=== PATIENT | male | born 1945 | race Caucasian/White ===

== ENCOUNTER 2017-07-21 09:05 | Observation (INO) | payer MEDICARE, OTHER ==
[~2017-07-21] VITALS: Ht 167.6 cm; Wt 101.8 kg
[2017-07-21 09:23] LABS: HEMATOCRIT 40.3 % (39.0-50.0); HEMOGLOBIN 13.6 g/dl (14.0-18.0); IMMATURE GRANULOCYTES 0.2 % (0.0-1.0); MEAN CELL VOLUME 85.7 fL CALC (80.0-100.0); MEAN CORPUSCULAR HGB 28.9 pG CALC (26.0-32.0); MEAN CORPUSCULAR HGB CONC 33.7 g/L CALC (32.0-36.0); NEUT# 5.13 thou/uL (1.82-7.42); RED BLOOD COUNT 4.7 mill/uL (4.70-6.10); RED CELL DISTRI WIDTH 13.8 % (11.5-15.5)
[2017-07-21] MEDS ORDERED: PROVENTIL0.083 % IN (09:40)
[2017-07-21 09:41] LABS: ALBUMIN 4.1 g/dL (3.2-5.0); ALKALINE PHOSPHATASE 67 u/l (38-126); ANION GAP 20 (6-22 (CALC)); BILIRUBIN, TOTAL 0.6 mg/dL (0.0-1.4); BUN 17 mg/dL (8-23); BUN/CREATININE RATIO 17 (12-20 (CALC)); CARBON DIOXIDE 27 mmol/l (22-30); CHLORIDE 98 mmol/l (95-108); GFR > 60 ML/MIN (>=60 (CALC)); GFR FOR AFR.AMER. > 60 ML/MIN (>=60 (CALC)); POTASSIUM 4.5 mmol/l (3.5-5.1); SGPT/ALT 30 u/l (11-66); SODIUM 141 mmol/l (137-146)
[2017-07-21] MEDS ORDERED: COZAAR100 MG PO (09:41)
[2017-07-21] MEDS ORDERED: CLOPIDOGREL75 MG PO (09:41)
[2017-07-21] MEDS ORDERED: GLYBURIDE5 M1 PO (09:41)
[2017-07-21 09:42] LABS: SGOT/AST 41 u/l (19-48)
[2017-07-21] MEDS ORDERED: METFORMIN1000 MG PO (09:43)
[2017-07-21] MEDS ORDERED: NITROSTAT0.4 MG SL (09:43)
[2017-07-21] MEDS ORDERED: OMEPRAZOLE10 MG PO (09:45)
[2017-07-21] MEDS ORDERED: PROTONIX40 M2 PO (09:45)
[2017-07-21] MEDS ORDERED: TRAMADOL HYDROC50 MG PO (09:46)
[2017-07-21] MEDS ORDERED: PRAVASTATIN SOD40 MG PO (09:46)
[2017-07-21 09:52] LABS: MYOGLOBIN 87 ng/mL (0 - 121)
[2017-07-21 13:00] VITALS: BP 138/51
[2017-07-21 16:00] VITALS: BP 143/69
[2017-07-21 19:00] VITALS: BP 177/82
[2017-07-21 20:03] VITALS: BP 159/71
[2017-07-22] VITALS: BP 152/69
[2017-07-22 04:00] VITALS: BP 142/70
[2017-07-22 06:07] LABS: CHOLESTEROL HDL RATIO 4.7 (<4.4 (CALC))
[2017-07-22 07:22] VITALS: BP 138/76
[2017-07-22 12:00] VITALS: BP 144/76
== END 2017-07-22 13:14 | disposition home or self-care (01) ==
LOC: ED 09:05 → ED-I 09:50 → ED 11:28 → MS2 11:29
PROVIDERS: Emergency Medicine; ADMIT Internal Medicine; ATTEND Internal Medicine
DX: R07.9 Chest pain, unspecified (principal); I25.10 Atherosclerotic heart disease of native coronary artery without angina pectoris; I11.9 Hypertensive heart disease without heart failure; E11.9 Type 2 diabetes mellitus without complications; E78.5 Hyperlipidemia, unspecified; I25.2 Old myocardial infarction; I44.7 Left bundle-branch block, unspecified; Z86.74 Personal history of sudden cardiac arrest; Z95.5 Presence of coronary angioplasty implant and graft

== ENCOUNTER 2018-04-11 17:28 | Emergency (ER) | payer MEDICARE ==
[~2018-04-11] VITALS: Ht 167.6 cm; Wt 109.0 kg
[~2018-04-11 17:28] MED LIST: CLOPIDOGREL75 MG PO; COZAAR100 MG PO; GLYBURIDE5 M1 PO; METFORMIN1000 MG PO; NITROSTAT0.4 MG SL; OMEPRAZOLE10 MG PO; PRAVASTATIN SOD40 MG PO; PROTONIX40 M2 PO; PROVENTIL0.083 % IN; TRAMADOL HYDROC50 MG PO
[2018-04-11 18:34] LABS: HEMATOCRIT 35.3 % (39.0-50.0); HEMOGLOBIN 11.8 g/dl (14.0-18.0); IMMATURE GRANULOCYTES 0.3 % (0.0-5.0); MEAN CELL VOLUME 89.6 fL CALC (80.0-100.0); MEAN CORPUSCULAR HGB 29.9 pG CALC (26.0-32.0); MEAN CORPUSCULAR HGB CONC 33.4 g/L CALC (32.0-36.0); NEUT# 4.25 thou/uL (1.82-7.42); RED BLOOD COUNT 3.94 mill/uL (4.70-6.10); RED CELL DISTRI WIDTH 13.6 % (11.5-15.5); URINE BLOOD DIPSTICK TRACE-INTACT (NEGATIVE); URINE COLOR YELLOW; URINE GLUCOSE - DIPSTICK NEGATIVE (NEGATIVE); URINE KETONE TRACE mg/dL (NEGATIVE); URINE LEUK ESTERASE NEGATIVE (NEGATIVE); URINE NITRITE - DIPSTICK NEGATIVE (Negative); URINE PH 5.5 (4.5-8.0); URINE PROTEIN - DIPSTICK 30 mg/dL (NEG-TRACE); URINE SPECIFIC GRAVITY >=1.030; URINE UROBILINOGEN - DIPSTICK 0.2 E.U./dL (0.2)
[2018-04-11 18:36] LABS: URINE BILIRUBIN - DIPSTICK NEGATIVE (NEGATIVE)
[2018-04-11 18:47] LABS: ALBUMIN 3.7 g/dL (3.2-5.0); BILIRUBIN, TOTAL 0.5 mg/dL (0.0-1.4); CREATININE 1.5 mg/dL (0.7-1.3); POTASSIUM 4.3 mmol/l (3.5-5.1); URINE RBC 0-2 RBC/hpf (0-5); URINE WBC 0-2 WBC/hpf (0-5)
[2018-04-11 18:48] LABS: TOTAL PROTEIN 6.2 g/dL (6.3-8.2)
[2018-04-11 21:51] VITALS: BP 187/80
== END 2018-04-11 22:04 | disposition short-term general hospital (02) ==
LOC: ED 17:28
DX: I44.2 Atrioventricular block, complete (principal); E11.9 Type 2 diabetes mellitus without complications; I10 Essential (primary) hypertension; E78.5 Hyperlipidemia, unspecified; I25.10 Atherosclerotic heart disease of native coronary artery without angina pectoris; Z95.5 Presence of coronary angioplasty implant and graft; R06.02 Shortness of breath

== ENCOUNTER → 2018-05-06 | Outpatient (REF) | payer MEDICARE ==
[2018-05-06 08:25] LABS: HEMATOCRIT 37.8 % (39.0-50.0); HEMOGLOBIN 12.4 g/dl (14.0-18.0); IMMATURE GRANULOCYTES 0.3 % (0.0-5.0); MEAN CELL VOLUME 88.9 fL CALC (80.0-100.0); MEAN CORPUSCULAR HGB 29.2 pG CALC (26.0-32.0); MEAN CORPUSCULAR HGB CONC 32.8 g/L CALC (32.0-36.0); NEUT# 4.52 thou/uL (1.82-7.42); RED BLOOD COUNT 4.25 mill/uL (4.70-6.10); RED CELL DISTRI WIDTH 13.2 % (11.5-15.5)
[2018-05-06 08:32] LABS: URINE BILIRUBIN - DIPSTICK NEGATIVE (NEGATIVE); URINE BLOOD DIPSTICK TRACE-LYSED (NEGATIVE); URINE COLOR YELLOW; URINE GLUCOSE - DIPSTICK NEGATIVE (NEGATIVE); URINE KETONE NEGATIVE (NEGATIVE); URINE LEUK ESTERASE NEGATIVE (NEGATIVE); URINE NITRITE - DIPSTICK NEGATIVE (Negative); URINE PROTEIN - DIPSTICK NEGATIVE (NEG-TRACE); URINE SPECIFIC GRAVITY 1.025; URINE UROBILINOGEN - DIPSTICK 0.2 E.U./dL (0.2)
[2018-05-06 08:50] LABS: ALKALINE PHOSPHATASE 57 u/l (38-126); ANION GAP 16 (6-22 (CALC)); BILIRUBIN, TOTAL 0.6 mg/dL (0.0-1.4); BUN 14 mg/dL (8-23); BUN/CREATININE RATIO 14 (12-20 (CALC)); CALCULATED LDLCHOLESTEROL 59 mg/dL (62-129 (CALC)); CARBON DIOXIDE 28 mmol/l (22-30); CHLORIDE 102 mmol/l (95-108); CHOLESTEROL HDL RATIO 4.3 (<4.4 (CALC)); GFR > 60 ML/MIN (>=60 (CALC)); GFR FOR AFR.AMER. > 60 ML/MIN (>=60 (CALC)); HDL CHOLESTEROL 35 mg/dL (>=40); POTASSIUM 4.8 mmol/l (3.5-5.1); SGOT/AST 22 u/l (19-48); SODIUM 141 mmol/l (137-146); TOTAL CHOLESTEROL 153 mg/dl (0-199); TOTAL PROTEIN 6.8 g/dL (6.3-8.2); TRIGLYCERIDES REFLEX TO dLDL 294 mg/dl (30-149); VLDL CHOLESTROL 59 mg/dl (0-38 (CALC))
== END | disposition home or self-care (01) ==
LOC: LAB 07:41
PROVIDERS: ATTEND Physician Assistant Medical
DX: E11.59 Type 2 diabetes mellitus with other circulatory complications (principal)

== ENCOUNTER 2019-07-11 | Emergency (ER) | payer MEDICARE ==
[2019-07-11 20:16] LABS: HEMATOCRIT 40.4 % (39.0-50.0); HEMOGLOBIN 13.1 g/dl (14.0-18.0); IMMATURE GRANULOCYTES 0.5 % (0.0-5.0); MEAN CELL VOLUME 86.3 fL CALC (80.0-100.0); MEAN CORPUSCULAR HGB CONC 32.4 g/dL CAL (32.0-36.0); NEUT# 6.35 thou/uL (1.82-7.42); RED BLOOD COUNT 4.68 mill/uL (4.70-6.10); RED CELL DISTRI WIDTH 14.2 % (11.5-15.5)
[2019-07-11 20:19] LABS: URINE BLOOD DIPSTICK TRACE-INTACT (NEGATIVE); URINE GLUCOSE - DIPSTICK NEGATIVE (NEGATIVE); URINE KETONE NEGATIVE (NEGATIVE); URINE LEUK ESTERASE TRACE (NEGATIVE); URINE NITRITE - DIPSTICK NEGATIVE (Negative); URINE PROTEIN - DIPSTICK 30 mg/dL (NEG-TRACE); URINE SPECIFIC GRAVITY 1.025
[2019-07-11 20:22] LABS: URINE COLOR AMBER
[2019-07-11 20:24] LABS: URINE BILIRUBIN - DIPSTICK SMALL (NEGATIVE); URINE RBC 0-2 RBC/hpf (0-5)
[2019-07-11 20:25] LABS: URINE WBC 0-2 WBC/hpf (0-5)
[2019-07-11 20:34] LABS: ALBUMIN 4.1 g/dL (3.2-5.0); AMYLASE 91 u/l (30-110); ANION GAP 15 (6-22 (CALC)); BUN 18 mg/dL (8-23); BUN/CREATININE RATIO 14 (12-20 (CALC)); CARBON DIOXIDE 28 mmol/l (22-30); CHLORIDE 98 mmol/l (95-108); CREATININE 1.3 mg/dL (0.7-1.3); GFR 54 ML/MIN (>=60 (CALC)); GFR FOR AFR.AMER. > 60 ML/MIN (>=60 (CALC)); LIPASE 122 u/l (23-300); MAGNESIUM 1.1 mg/dL (1.6-2.3); POTASSIUM 3.9 mmol/l (3.5-5.1); SODIUM 136 mmol/l (137-146); TOTAL PROTEIN 7.5 g/dL (6.3-8.2)
[2019-07-11 20:35] LABS: ACT PARTIAL THROMBO TIME 27.8 SECONDS (20.0-32.5); ALKALINE PHOSPHATASE 155 u/l (38-126); INTERNATIONAL NORMALIZED RATIO 1.3 RATIO (0.7-1.3); PROTHROMBIN TIME 13.1 SECONDS (9.0-12.5); SGOT/AST 318 u/l (19-48)
--- NOTE | 2019-07-13 08:02 | NUR ---
Preliminary blood culture results of 1/4 bottles growing gram negative santos called to nurse Tunde at [facility]. Will call tomorrow with final results.
--- NOTE | 2019-07-14 10:09 | NUR ---
PT WAS TRANSFERRED TO [facility]. SPOKE TO NURSE PARIS, FAXED BLOOD CX RESULTS TO [phone]
== END 2019-07-11 22:20 | disposition short-term general hospital (02) ==
DX: I21.4 Non-ST elevation (NSTEMI) myocardial infarction (principal); K80.20 Calculus of gallbladder without cholecystitis without obstruction; E11.9 Type 2 diabetes mellitus without complications; I10 Essential (primary) hypertension; I25.10 Atherosclerotic heart disease of native coronary artery without angina pectoris; Z95.5 Presence of coronary angioplasty implant and graft; Z95.0 Presence of cardiac pacemaker; Z20.828 Contact with and (suspected) exposure to other viral communicable diseases; Z86.74 Personal history of sudden cardiac arrest
CPT/HCPCS: J1644; Q9967

== ENCOUNTER 2019-08-28 08:16 | Emergency (ER) | payer MEDICARE ==
[2019-08-28 08:55] LABS: HEMATOCRIT 39.4 % (39.0-50.0); HEMOGLOBIN 12.9 g/dl (14.0-18.0); IMMATURE GRANULOCYTES 0.9 % (0.0-5.0); MEAN CELL VOLUME 85.7 fL CALC (80.0-100.0); MEAN CORPUSCULAR HGB CONC 32.7 g/dL CAL (32.0-36.0); NEUT# 8.2 thou/uL (1.82-7.42); RED BLOOD COUNT 4.6 mill/uL (4.70-6.10); RED CELL DISTRI WIDTH 14.2 % (11.5-15.5)
[2019-08-28 09:09] LABS: ALBUMIN 4.4 g/dL (3.2-5.0); AMYLASE 67 u/l (30-110); ANION GAP 17 (6-22 (CALC)); BUN 15 mg/dL (8-23); BUN/CREATININE RATIO 18 (12-20 (CALC)); CARBON DIOXIDE 24 mmol/l (22-30); CHLORIDE 99 mmol/l (95-108); CREATININE 0.9 mg/dL (0.7-1.3); GFR > 60 ML/MIN (>=60 (CALC)); GFR FOR AFR.AMER. > 60 ML/MIN (>=60 (CALC)); LIPASE 158 u/l (23-300); SODIUM 135 mmol/l (137-146); TOTAL PROTEIN 7.6 g/dL (6.3-8.2)
[2019-08-28 09:10] LABS: ALKALINE PHOSPHATASE 74 u/l (38-126); BILIRUBIN, TOTAL 0.6 mg/dL (0.0-1.4); SGOT/AST 26 u/l (19-48)
[2019-08-28 10:49] LABS: URINE BILIRUBIN - DIPSTICK NEGATIVE (NEGATIVE); URINE BLOOD DIPSTICK TRACE-INTACT (NEGATIVE); URINE COLOR YELLOW; URINE GLUCOSE - DIPSTICK 250 mg/dL (NEGATIVE); URINE KETONE NEGATIVE (NEGATIVE); URINE LEUK ESTERASE NEGATIVE (NEGATIVE); URINE NITRITE - DIPSTICK NEGATIVE (Negative); URINE PROTEIN - DIPSTICK 100 mg/dL (NEG-TRACE); URINE SPECIFIC GRAVITY 1.025; URINE UROBILINOGEN - DIPSTICK 0.2 E.U./dL (0.2)
[2019-08-28 11:04] LABS: URINE RBC 0-2 RBC/hpf (0-5)
[2019-08-28 11:05] LABS: URINE SQUAMOUS EPITHELIAL CELL FEW EPI/hpf (0-FEW)
[2019-08-28 11:50] VITALS: BP 176/83
== END 2019-08-28 11:50 | disposition short-term general hospital (02) ==
LOC: ED 08:16
PROVIDERS: Student in an Organized Health Care Education/Training Program
DX: K80.10 Calculus of gallbladder with chronic cholecystitis without obstruction (principal); E11.9 Type 2 diabetes mellitus without complications; I10 Essential (primary) hypertension; I25.10 Atherosclerotic heart disease of native coronary artery without angina pectoris; I25.2 Old myocardial infarction; Z95.5 Presence of coronary angioplasty implant and graft; Z95.0 Presence of cardiac pacemaker; Z79.84 Long term (current) use of oral hypoglycemic drugs
CPT/HCPCS: Q9967